=== PATIENT | female | born 1995 | race Caucasian/White ===

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

== ENCOUNTER → 2021-12-13 | Outpatient (CLI) | payer OTHER ==
[~2021-12-13] MED LIST: KEFLEX CAP 500500 MG PO; ZOFRAN ODT 4 MG4 MG PO
== END ==
LOC: LAB 15:15
DX: K50.812 Crohn's disease of both small and large intestine with intestinal obstruction (principal)
CPT/HCPCS: 83993